=== PATIENT | female | born 1945 | race Caucasian/White ===

== ENCOUNTER 2016-09-22 10:49 | Day surgery (SDC) | payer MEDICARE, BC ==
[2016-09-15 12:26] LABS: HEMATOCRIT 38.7 % (36.0-48.0); HEMOGLOBIN 13.3 g/dL (12.0-16.0)
[2016-09-15 12:38] LABS: BUN (BLOOD UREA NITROGEN) 16 MG/DL (6-23); CALCIUM, SERUM 9.8 MG/DL (8.5-10.4); CHLORIDE, SERUM 102 MMOL/L (96-112); CO2 (CARBON DIOXIDE) 31 MMOL/L (24-34); CREATININE 0.63 MG/DL (0.55-1.02); GFR AFRICAN AMERICAN 104 ML/MIN (>=60); GFR NON AFRICAN AMERICAN 90 ML/MIN (>=60); GLUCOSE, SERUM 100 MG/DL (60-99); POTASSIUM, SERUM 3.3 MMOL/L (3.5-5.3); SODIUM, SERUM 140 MMOL/L (135-148)
[~2016-09-22 10:49] MED LIST: CALTRA600D PO; COREG25 PO; COREG6 PO; CYANO1000T PO; FOSAMAX70 MG PO; HORMONE REPLACEMENT; HYGROTON 25 MG25 MG OR; IBU-200200 MG PO; KLOR-CON 1010 MEQ PO; MIRAPEX125 PO; MULTIPLE VIT PO; NEXIUM20 M1 PO; RECLAST IV; T PO; VALTREX5 PO
== END 2016-09-22 16:14 | disposition home or self-care (01) ==
LOC: IMGHOLD 10:49 → RADHOLD 10:58
PROVIDERS: Anesthesiology; Family Medicine
PROC: B030ZZZ Magnetic Resonance Imaging (MRI) of Brain (ICD-10-PCS; principal; 2016-09-22)
DX: D76.3 Other histiocytosis syndromes (principal); I10 Essential (primary) hypertension; Z88.2 Allergy status to sulfonamides; Z88.0 Allergy status to penicillin; Z79.899 Other long term (current) drug therapy; Z98.890 Other specified postprocedural states
CPT/HCPCS: 70553; 80048; 85014; 85018; 93005; A9270-GY; A9577; J1200; J2250; J2405